=== PATIENT | male | born 1940 | race Caucasian/White ===

== ENCOUNTER → 2018-01-30 | Outpatient (CLI) | payer MEDICARE, OTHER ==
[~2018-01-30] MED LIST: CEPH500 PO; OXYACE5T PO
== END | disposition home or self-care (01) ==
LOC: LAB SHORT 10:06 → PLD 10:06
DX: L82.1 Other seborrheic keratosis (principal)
CPT/HCPCS: 88305

== ENCOUNTER 2021-04-13 08:26 | Day surgery (SDC) | payer MEDICARE, OTHER ==
[~2021-04-13] VITALS: Ht 177.8 cm; Wt 82.5 kg
--- NOTE | 2021-04-13 09:07 | NUR ---
04/13/21 0907 Cintia Wells FIRST ATTEMPT MISSED BY FABIO IN THE RIGHT HAND DUE TO DEFECTIVE CATHETER. SECOND ATTEMPT SUCCESSFUL BY RN IN RIGHT FOREARM. PT AZAR.
== END 2021-04-13 10:34 | disposition home or self-care (01) ==
LOC: ORSCSDS 08:26
PROVIDERS: Internal Medicine Gastroenterology
PROC: 0DBK8ZX Excision of Ascending Colon, Via Natural or Artificial Opening Endoscopic, Diagnostic (ICD-10-PCS; principal; 2021-04-13 09:45)
DX: Z12.11 Encounter for screening for malignant neoplasm of colon (principal); D12.2 Benign neoplasm of ascending colon; K57.30 Diverticulosis of large intestine without perforation or abscess without bleeding
CPT/HCPCS: 88305; J2704; J7120